=== PATIENT | female | born 1995 | race African-American/Black ===

== ENCOUNTER 2018-03-07 11:42 | Emergency (ER) | payer OTHER ==
[~2018-03-07] VITALS: Ht 160 cm; Wt 102.1 kg
[~2018-03-07 11:42] MED LIST: MACROBID100 MG ORAL
[2018-03-07 11:43] VITALS: BP 121/67
[2018-03-07] MEDS ORDERED: NKM (11:45)
[2018-03-07] MEDS ORDERED: Sodium Chloride 500ML 500 ML IV ONE (12:07)
[2018-03-07] MEDS ORDERED: Isovue-300 100ml vial INJ PRN (12:15)
[2018-03-07] MEDS ORDERED: Morphine Sulfate 4mg/ml Inj (IV/IM USE ONLY) IVP ONE ×2 (12:15→14:15)
[2018-03-07 12:28] LABS: BASOPHILS % (AUTO) 0.8 % (0.0-2.0); EOSINOPHILS % (AUTO) 0.3 % (0.0-3.0); HEMATOCRIT 42.9 % (37.0-47.0); HEMOGLOBIN 13.5 G/DL (12.0-16.0); LYMPHOCYTES % (AUTO) 13.9 % (20.0-45.0); MEAN CORPUSCULAR VOLUME 78 FL (80-99); MONOCYTES % (AUTO) 4.7 % (1.0-10.0); NEUTROPHILS % (AUTO) 80.2 % (45.0-75.0); PLATELET COUNT 436 K/UL (150-450); RED CELL DISTRIBUTION WIDTH 14.3 % (11.6-14.8); WHITE BLOOD COUNT 14.6 K/UL (4.8-10.8)
[2018-03-07 12:32] LABS: ANION GAP 10 mmol/L (5-15); BLOOD UREA NITROGEN 17 mg/dL (7-18); CARBON DIOXIDE 26 MMOL/L (21-32); CHLORIDE 104 MMOL/L (98-107); POTASSIUM 4.1 MMOL/L (3.5-5.1); SODIUM 140 MMOL/L (136-145)
[2018-03-07 12:33] LABS: APPEARANCE,URINE CLEAR; BILIRUBIN, URINE NEGATIVE (NEGATIVE); GLUCOSE, URINE (UA) NEGATIVE (NEGATIVE); KETONES,URINE NEGATIVE (NEGATIVE); LEUKOCYTE ESTERASE ,URINE 1+ (NEGATIVE); NITRITE,URINE NEGATIVE (NEGATIVE); PH,URINE 5 (4.5-8.0); PROTEIN,URINE 3+ (NEGATIVE); UROBILINOGEN,URINE NORMAL MG/DL (0.0-1.0)
[2018-03-07 12:36] LABS: ALANINE AMINOTRANSFERASE 18 U/L (12-78); ALBUMIN/GLOBULIN RATIO 0.8 (1.0-2.7); ALKALINE PHOSPHATASE 96 U/L (46-116); ASPARTATE AMINO TRANSFERASE 10 U/L (15-37); BILIRUBIN,TOTAL 0.2 MG/DL (0.2-1.0)
[2018-03-07 12:36] LABS: COLOR,URINE YELLOW
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
--- NOTE | 2018-03-07 14:07 | Diagnostic Imaging Report ---
Indication: Abdominal pain Technique: One view of the chest Comparison: none Findings: Lungs and pleural spaces are clear. Heart size is normal Impression: No acute process
[2018-03-07] MEDS ORDERED: Ketorolac 30mg Inj IV ONE (14:15)
[2018-03-07] MEDS ORDERED: Methocarbamol 750mg tab ORAL ONE (14:15)
[2018-03-07] MEDS ORDERED: ROBAXIN-750750 MG PO (14:20)
[2018-03-07] MEDS ORDERED: IBUPROFEN600 MG ORAL (14:20)
[2018-03-07] MEDS ORDERED: LIDODERM700 M1 TOPIC (14:20)
[2018-03-07] MEDS ORDERED: NORCO 5-325 TA1 EACH ORAL (14:20)
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
[2018-03-07 14:45] VITALS: BP 117/70
== END 2018-03-07 14:45 | disposition home or self-care (01) ==
LOC: EDBD 11:42 → EMR 12:09
DX: S30.1XXA Contusion of abdominal wall, initial encounter (principal); V09.9XXA Pedestrian injured in unspecified transport accident, initial encounter; Y92.410 Unspecified street and highway as the place of occurrence of the external cause; I10 Essential (primary) hypertension; Z88.0 Allergy status to penicillin
CPT/HCPCS: 36415; 71045; 74177; 80053; 81003; 81025; 83690; 84702; 85025; 96374; 96375; 99284; J1885; J2270; Q9967